=== PATIENT | female | born 1950 | race Caucasian/White ===

== ENCOUNTER 2016-11-09 06:56 | Emergency (ER) | payer MEDICARE, OTHER ==
--- NOTE | 2016-11-09 07:13 | EDM.PDOC ---
ED HPI GENERAL MEDICAL PROBLEM - General Chief Complaint: Genitourinary Problem Stated Complaint: [id number] BLADDER INFECTION Time Seen by Provider: 11/09/16 07:08 Source of Information: Reports: Patient History Limitations: Reports: No Limitations - History of Present Illness INITIAL COMMENTS - FREE TEXT/NARRATIVE: 66 yo white female c/o pain with urination since last pm. Pt. reports getting UTIs once yearly. Pt. denies chills, fever, nausea or vomitting Onset Date: 11/08/16 Onset Time: 19:00 Duration: Hour(s): Location: Reports: Abdomen (low mid) Quality: Reports: Pressure Severity: Moderate Improves with: Reports: None Worsens with: Reports: None Associated Symptoms: Reports: No Other Symptoms Pelvic Pain Score (Numeric/FACES): 5 - Related Data Allergies Allergy/AdvReac Type Severity Reaction Status Date / Time No Known Allergies Allergy Verified 11/09/16 07:06 Home Meds: Home Meds . [No Known Home Meds] 11/09/16 [History] ED ROS GENERAL - Review of Systems Review Of Systems: See Below Constitutional: Reports: No Symptoms HEENT: Reports: No Symptoms Respiratory: Reports: No Symptoms Cardiovascular: Reports: No Symptoms Endocrine: Reports: No Symptoms GI/Abdominal: Reports: Abdominal Pain (low mid) : Reports: Dysuria, Frequency Musculoskeletal: Reports: No Symptoms Skin: Reports: No Symptoms Neurological: Reports: No Symptoms Psychiatric: Reports: No Symptoms Hematologic/Lymphatic: Reports: No Symptoms Immunologic: Reports: No Symptoms ED EXAM, RENAL/ - Physical Exam Exam: See Below Exam Limited By: No Limitations General Appearance: Alert, No Apparent Distress, Obese Head: Atraumatic Respiratory/Chest: No Respiratory Distress Cardiovascular: Normal Peripheral Pulses GI/Abdominal: Tender (suprapubic area) Back Exam: Normal Inspection Extremities: Normal Inspection Neurological: Alert, Oriented, CN II-XII Intact Psychiatric: Normal Affect, Normal Mood Skin Exam: Warm, Dry, Intact Lymphatic: No Adenopathy Course - Vital Signs Last Recorded V/S: Last Vital Signs Temp 36.2 C 11/09/16 06:58 Pulse 77 11/09/16 06:58 Resp 16 11/09/16 06:58 BP 143/69 H 11/09/16 06:58 Pulse Ox 100 11/09/16 06:58 - Orders/Labs/Meds Orders: Active Orders 24 hr Category Date Time Status CULTURE URINE [RM] Stat Lab 11/09/16 07:16 Uncollected Labs: Laboratory Tests 11/09/16 Range/Units 07:00 Urine Color Yellow (YELLOW) Urine Appearance Turbid (CLEAR) Urine pH 7.0 (5.0-9.0) Ur Specific [place] 1.020 (1.005-1.030) Urine Protein 100 H (NEGATIVE) Urine Glucose (UA) Negative (NEGATIVE) Urine Ketones Negative (NEGATIVE) Urine Occult Blood Large H (NEGATIVE) Urine Nitrite Positive H (NEGATIVE) Urine Bilirubin Negative (NEGATIVE) Urine Urobilinogen 0.2 (0.2-1.0) mg/dL Ur Leukocyte Esterase Large H (NEGATIVE) Urine RBC 50-75 H /HPF Urine WBC >100 H (0-5/HPF) /HPF Ur Epithelial Cells Few /HPF Amorphous Sediment Few (0/HPF) /HPF Urine Bacteria Many H (0-FEW/HPF) /HPF Urine Mucus Moderate H /LPF Meds: Medications Discontinued Medications Generic Name Dose Route Start Last Admin Trade Name Leroyq PRN Reason Stop Dose Admin Ciprofloxacin 500 mg 11/09/16 07:36 Ciprofloxacin Hcl PO 11/09/16 07:37 ONETIME ONE Phenazopyridine HCl 190 mg 11/09/16 07:36 Urinary Pain Relief PO 11/09/16 07:37 ONETIME ONE Departure - Departure Time of Disposition: 07:37 Disposition: Home, Self-Care 01 Condition: Good Clinical Impression: UTI, Urinary tract infectious disease - Discharge Information Forms: ED Department Discharge Additional Instructions: Increase intake of WATER and CRANBERRY JUICE Take medication as prescribed only and complete: CIPRO 500mg BID @ 20 PYRIDIUM 100mg TID # 9 F/U w/ PCP - My Orders Last 24 Hours: My Active Orders 11/09/16 07:16 CULTURE URINE [RM] Stat - Assessment/Plan Last 24 Hours: My Active Orders 11/09/16 07:16 CULTURE URINE [RM] Stat
[2016-11-09 07:14] VITALS: BP 143/69
[2016-11-09] MEDS ORDERED: Ciprofloxacin 500 MG Tab PO ONE ×2 (07:36→07:48)
[2016-11-09] MEDS ORDERED: Phenazopyridine 95 MG Tab PO ONE ×2 (07:36→07:48)
[2016-11-09] MEDS ORDERED: Ciprofloxacin 500 MG Tab ONE (07:48)
[2016-11-09] MEDS ORDERED: Phenazopyridine 95 MG Tab ONE (07:48)
== END 2016-11-09 07:58 | disposition home or self-care (01) ==
LOC: DL.ED 06:56
DX: N39.0 Urinary tract infection, site not specified (principal)
CPT/HCPCS: 81001; 99284; A9270; 99283

== ENCOUNTER 2017-03-20 09:25 | Emergency (ER) | payer MEDICARE, OTHER ==
[2017-03-20] MEDS ORDERED: Propofol 200 MG/20 ML SDV IV ONE (09:26)
[2017-03-20] MEDS ORDERED: HYDROmorphone 1 MG/ML Syringe IM ONE (09:49)
--- NOTE | 2017-03-20 09:50 | EDM.PDOC ---
ED HPI GENERAL MEDICAL PROBLEM - General Chief Complaint: Upper Extremity Injury/Pain Stated Complaint: PAIN IN LEFT SHOULDER, FELL LAST NIGHT [phone] Time Seen by Provider: 03/20/17 09:25 Source of Information: Reports: Patient, RN, RN Notes Reviewed History Limitations: Reports: No Limitations - History of Present Illness INITIAL COMMENTS - FREE TEXT/NARRATIVE: Pt presents to the ER with c/o right shoulder pain. She states she slipped on the ice at home last night and hurt her right shoulder. She states she has been taking acetaminophen for the pain. Pt admits to numbness in the right hand. She rates the pain a 10/10. Pt denies hitting her head or losing consciousness. Onset: Sudden Onset Date: 03/19/17 Duration: Constant Location: Reports: Upper Extremity, Right Quality: Reports: Sharp, Stabbing, Throbbing Severity: Severe Improves with: Reports: None Worsens with: Reports: None Associated Symptoms: Reports: No Other Symptoms Treatments [employer] OFFICER: Reports: Acetaminophen Right Shoulder Pain Score (Numeric/FACES): 10 - Related Data Allergies Allergy/AdvReac Type Severity Reaction Status Date / Time No Known Allergies Allergy Verified 03/20/17 09:35 Home Meds: Home Meds Acetaminophen [Tylenol] 1,300 mg PO Q4HR 03/20/17 [History] Past Medical History HEENT History: Reports: None Cardiovascular History: Reports: None Respiratory History: Reports: None Gastrointestinal History: Reports: Cholelithiasis Genitourinary History: Reports: UTI, Recurrent [employer] History: Reports: None Musculoskeletal History: Reports: None Neurological History: Reports: None Psychiatric History: Reports: None Endocrine/Metabolic History: Reports: None Hematologic History: Reports: None Immunologic History: Reports: None Oncologic (Cancer) History: Reports: None Dermatologic History: Reports: None - Infectious Disease History Infectious Disease History: Reports: Chicken Pox, Measles, Mumps - Past Surgical History Head Surgeries/Procedures: Reports: None HEENT Surgical History: Reports: Tonsillectomy GI Surgical History: Reports: Cholecystectomy Female Surgical History: Reports: None Social & Family History - Tobacco Use Smoking Status *Q: Never Smoker Second Hand Smoke Exposure: No - Caffeine Use Caffeine Use: Reports: Coffee - Recreational Drug Use Recreational Drug Use: No Review of Systems - Review of Systems Review Of Systems: ROS reveals no pertinent complaints other than HPI. ED EXAM, GENERAL - Physical Exam Exam: See Below Exam Limited By: No Limitations General Appearance: Alert, WD/WN, Moderate Distress Eye Exam: Bilateral Eye: EOMI, Normal Inspection, PERRL Ears: Normal External Exam, Hearing Grossly Normal Nose: Normal Inspection Throat/Mouth: Normal Inspection, Normal Voice, No Airway Compromise Head: Atraumatic, Normocephalic Neck: Normal Inspection, Supple, Non-Tender, Full Range of Motion Respiratory/Chest: No Respiratory Distress, Lungs Clear, Normal Breath Sounds, No Accessory Muscle Use, Chest Non-Tender Cardiovascular: Normal Peripheral Pulses, Regular Rate, Rhythm, No Edema, No Gallop, No JVD, No Murmur, No Rub Peripheral Pulses: 2+: Brachial (L), Brachial (R) GI/Abdominal: Normal Bowel Sounds, Soft, Non-Tender, No Organomegaly, No Distention, No Abnormal Bruit, No Mass, Pelvis Stable (Female) Exam: Deferred Rectal (Female) Exam: Deferred Back Exam: Normal Inspection, Full Range of Motion Extremities: Normal Inspection, No Pedal Edema, Normal Capillary Refill, Arm Pain (right), Limited Range of Motion (right arm), Other (numbness to the right hand and right arm) Neurological: Alert, Oriented, Normal Cognition, Normal Gait, Normal Reflexes, No Motor/Sensory Deficits Psychiatric: Normal Affect, Normal Mood Skin Exam: Warm, Dry, Intact, Normal Color, No Rash Lymphatic: No Adenopathy ED TRAUMA EXTREMITY PROCEDURES - Joint Reduction Site: Shoulder (R) Sedation: Conscious Sedation Pre-Procedure NV Status: Abnormal (Good radial pulses, good CMS, c/o numbness to the right hand) Post-Procedure NV Status: Abnormal (Pulse present, Good capillary refill, continues to c/o numbness to the right hand) Technique: Traction/Counter Traction Number of Attempts: 2 Post-Reduction Imaging: Acceptably Reduced, Fracture Seen Joint Reduction Complications: No Progress/Comments: Pre and post reduction films sent to [facility]. Visited with Dr. Johnson regarding the patient. He states if acceptably reduced following more views done , the patient can be placed in a sling and discharged. She is to follow up with Ortho at [facility] in [place] next week. Course - Vital Signs Last Recorded V/S: Last Vital Signs Temp 97.6 F 03/20/17 09:31 Pulse 60 03/20/17 14:35 Resp 16 03/20/17 14:35 BP 154/71 H 03/20/17 14:35 Pulse Ox 97 03/20/17 14:35 - Orders/Labs/Meds Orders: Active Orders 24 hr Category Date Time Status Peripheral IV Care [RC] . DIRECTED Care 03/20/17 10:47 Active Peripheral IV Insertion Adult [OM.PC] Stat Oth 03/20/17 10:47 Ordered Labs: Laboratory Tests 03/20/17 03/20/17 Range/Units 10:56 10:56 WBC 8.1 (5.0-10.0) 10^3/uL RBC 3.88 L (4.2-5.4) 10^6/uL Hgb 13.1 (12.0-16.0) g/dL Hct 38.7 (37.0-47.0) % MCV 99.7 (80-100) fL MCH 33.8 (27.0-34.0) pg MCHC 33.9 (33.0-35.0) g/dL Plt Count 182 (150-450) 10^3/uL Neut % (Auto) 82.0 H (42.2-75.2) % Lymph % (Auto) 10.3 L (20.5-50.1) % Elbert % (Auto) 7.4 (2-8) % Eos % (Auto) 0.2 L (1.0-3.0) % Baso % (Auto) 0.1 (0.0-1.0) % Sodium 137 (135-145) mmol/L Potassium 4.1 (3.6-5.0) mmol/L Chloride 104 (101-111) mmol/L Carbon Dioxide 22.0 (21.0-31.0) mmol/L Anion Gap 15.1 BUN 18 (7-18) mg/dL Creatinine 0.7 (0.6-1.3) mg/dL Est Cr Clr Drug Dosing 74.01 mL/min Estimated GFR (MDRD) > 60 BUN/Creatinine Ratio 25.71 Glucose 129 H (74-105) mg/dL Calcium 9.0 (8.4-10.2) mg/dl Total Bilirubin 0.7 (0.2-1.0) mg/dL AST 66 H (10-42) IU/L ALT 43 (10-60) IU/L Alkaline Phosphatase 85 (42-121) IU/L Total Protein 6.9 (6.7-8.2) g/dl Albumin 4.3 (3.2-5.5) g/dl Globulin 2.6 Albumin/Globulin Ratio 1.65 Meds: Medications Discontinued Medications Generic Name Dose Route Start Last Admin Trade Name Freq PRN Reason Stop Dose Admin Hydromorphone HCl 0.5 mg 03/20/17 10:00 03/20/17 09:56 Dilaudid IM 03/20/17 10:01 0.5 mg ONETIME ONE Administration Hydromorphone HCl 1 mg 03/20/17 11:45 03/20/17 11:50 Dilaudid IVPUSH 03/20/17 11:46 1 mg ONETIME ONE Administration Sodium Chloride 1,000 mls @ 999 mls/hr 03/20/17 10:47 03/20/17 11:35 Normal Saline IV 03/20/17 11:47 999 mls/hr .BOLUS ONE Administration Ondansetron HCl 4 mg 03/20/17 15:57 03/20/17 16:15 Zofran IV 03/20/17 15:58 4 mg ONETIME ONE Administration Sodium Chloride 10 ml 03/20/17 10:47 Saline Flush FLUSH ASDIRECTED PRN Keep Vein Open - Radiology Interpretation Free Text/Narrative:: Right Shoulder xray: Anterior dislocation humeral head proximal right humerus relative to the glenoid of the scapula with associated avulsion fracture greater tuberosity laterally humeral head (large fragment sheared off by the ingraglenoid portion of the scapula). See rad report Post reduction xrays: Satisfactory reduction See rad report Discussed patient case with Dr. Disla at [facility]. He states the patient can be put in a sling and follow up with ortho in [place] next week. Departure - Departure Time of Disposition: 15:36 Disposition: Home, Self-Care 01 Condition: Fair Clinical Impression: Dislocation of right shoulder joint Qualifiers: Encounter type: initial encounter Qualified Code(s): S43.004A - Unspecified dislocation of right shoulder joint, initial encounter Fracture closed, humerus Qualifiers: Encounter type: initial encounter Humerus Location: greater tuberosity Fracture alignment: nondisplaced Laterality: right Qualified Code(s): S42.254A - Nondisplaced fracture of greater tuberosity of right humerus, initial encounter for closed fracture - Discharge Information Instructions: Humerus Fracture Treated With Immobilization, [id number], Shoulder Pain, [id number], Shoulder Dislocation, [id number] Referrals: PCP,None [Primary Care Provider] - Forms: ED Department Discharge Additional Instructions: Make an appointment to be seen by Ortho at [facility] in [place] next week. Use sling at all times except for the shower until seen by Ortho. RX: Narco Ibuprofen 600-800mg every 8 hours as needed for pain Tylenol (acetaminophen) 500-650mg every 4 hours as needed for pain but do not take while taking the Narco as it has acetaminophen in it also. - My Orders Last 24 Hours: My Active Orders 03/20/17 10:47 Peripheral IV Care [RC] . DIRECTED Peripheral IV Insertion Adult [OM.PC] Stat - Assessment/Plan Last 24 Hours: My Active Orders 03/20/17 10:47 Peripheral IV Care [RC] . DIRECTED Peripheral IV Insertion Adult [OM.PC] Stat
[2017-03-20] MEDS ORDERED: HYDROmorphone 0.5 MG/0.5 ML Syringe IM ONE (10:00)
--- NOTE | 2017-03-20 10:16 | CR ---
Clinical history: 66-year-old female injured right shoulder in a fall. Interpretation: Abnormal. Anterior dislocation humeral head proximal right humerus relative to the glenoid of the scapula with associated avulsion fracture greater tuberosity laterally humeral head (large fragment sheared off by the infraglenoid portion of the scapula). No other fractures of the right shoulder "girdle" and no associated separation of the acromioclavicul ar joint. Right lung apex clear. No upper rib fractures.
[2017-03-20] MEDS ORDERED: Sodium Chloride 0.9% 10 ML Syringe FLUSH PRN (10:47)
[2017-03-20] MEDS ORDERED: Sodium Chloride 0.9% 1,000 ML IV ONE (10:47)
[2017-03-20 11:23] LABS: ANION GAP 15.1; CHLORIDE,CL 104 mmol/L (101-111); SODIUM,NA 137 mmol/L (135-145)
[2017-03-20] MEDS ORDERED: HYDROmorphone 1 MG/ML Syringe IVPUSH ONE (11:37)
[2017-03-20] MEDS ORDERED: HYDROmorphone 0.5 MG/0.5 ML Syringe IVPUSH ONE (11:45)
--- NOTE | 2017-03-20 12:38 | CR ---
Clinical history: 66-year-old sedated, supine obese female for reduction right shoulder "dislocation and fracture". Satisfactory relocation humeral head relative to the glenoid of the scapula (Y view) right shoulder. Previously noted "greater tuberosity fracture, head of the right humerus" fragment not appreciated an d recommend repeat, follow-up, more optimal AP view when patient stable.
--- NOTE | 2017-03-20 14:35 | CR ---
Clinical history: 66-year-old female right shoulder post reduction "anterior dislocation with avulsio n fracture humeral head". Interpretation: Satisfactory reduction i.e. relocation humeral head relative to the glenoid of the sc apula. Large avulsion fracture fragment greater tuberosity lateral aspect of the humeral head nondisplaced. Humeral head is elevated relative to the glenoid consistent with capsular injury. No other shoulder f racture or A-C separation. Right lung apex clear.
[2017-03-20 14:36] VITALS: BP 154/71
[2017-03-20] MEDS ORDERED: Ondansetron 4 MG/2 ML SDV IV ONE (15:57)
== END 2017-03-20 16:30 | disposition home or self-care (01) ==
LOC: DL.ED 09:25
DX: S42.254A Nondisplaced fracture of greater tuberosity of right humerus, initial encounter for closed fracture (principal); S43.004A Unspecified dislocation of right shoulder joint, initial encounter; W00.9XXA Unspecified fall due to ice and snow, initial encounter; Y92.009 Unspecified place in unspecified non-institutional (private) residence as the place of occurrence of the external cause
CPT/HCPCS: 01620; 23650; 23665; 36415; 73030; 80053; 85025; 96372; 96374; 96375; 99284; J1170; J2405; J2704; J7030

== ENCOUNTER 2021-07-30 06:55 | Day surgery (SDC) | payer MEDICARE, OTHER ==
[~2021-07-30 06:55] MED LIST: Dextrose 5%-0.45% NaCl 1,000 ML IV SCH; Midazolam 1 MG/ML 2 ML SDV ONE; Sodium Chloride 0.9% 10 ML Syringe FLUSH PRN; Sodium Chloride 0.9% 10 ML Syringe FLUSH SCH; fentaNYL 100 MCG/2 ML SDV ONE
[2021-07-30] MEDS ORDERED: fentaNYL 100 MCG/2 ML SDV IV ONE ×3 (06:56→08:25)
[2021-07-30] MEDS ORDERED: Midazolam 1 MG/ML 2 ML SDV IV ONE ×7 (06:56→08:33)
[2021-07-30 10:42] VITALS: BP 138/69; PULSE 58
== END 2021-07-30 10:35 | disposition home or self-care (01) ==
LOC: DL.ENDO 06:55
PROVIDERS: ATTEND Internal Medicine Gastroenterology
DX: Z12.11 Encounter for screening for malignant neoplasm of colon (principal); K57.30 Diverticulosis of large intestine without perforation or abscess without bleeding; E03.9 Hypothyroidism, unspecified; E66.09 Other obesity due to excess calories; E78.5 Hyperlipidemia, unspecified; F10.10 Alcohol abuse, uncomplicated; Z98.890 Other specified postprocedural states; Z90.49 Acquired absence of other specified parts of digestive tract; Z87.39 Personal history of other diseases of the musculoskeletal system and connective tissue; Z68.41 Body mass index [BMI] 40.0-44.9, adult
CPT/HCPCS: G0121; J2250; J3010; J7042

== ENCOUNTER 2022-04-13 09:32 | Emergency (ER) | payer MEDICARE, OTHER ==
[2022-04-13 09:43] VITALS: BP 158/92; PULSE 70
== END 2022-04-13 12:05 | disposition home or self-care (01) ==
LOC: DL.ED 09:32
DX: M25.774 Osteophyte, right foot (principal); M19.071 Primary osteoarthritis, right ankle and foot; E66.9 Obesity, unspecified; Z68.42 Body mass index [BMI] 45.0-49.9, adult
CPT/HCPCS: 73610-RT; 73630-RT; 99283

== ENCOUNTER 2024-04-12 23:48 | Emergency (ER) | payer MEDICARE, OTHER ==
[2024-04-13] MEDS: Ketorolac 30 MG/ML SDV IM ONE (00:02)
[2024-04-13 00:15] LABS: BASOPHILS PERCENT AUTO 0.3 % (0.0-1.0); EOSINOPHILS PERCENT AUTO 3.6 % (1.0-3.0); HEMATOCRIT 31.5 % (37.0-47.0); HEMOGLOBIN 10.3 g/dL (12.0-16.0); LYMPHOCYTES PERCENT AUTO 17.6 % (20.5-50.1); MEAN CORPUSCULAR HGB CONC 32.7 g/dL (33.0-35.0); MONOCYTES PERCENT AUTO 10.1 % (2-8); NEUTROPHILS PERCENT AUTO 68.4 % (42.2-75.2); PLATELET COUNT,PLT 235 10^3/uL (150-450); RED BLOOD CELL COUNT 3.03 10^6/uL (4.2-5.4); WHITE BLOOD CELL COUNT,WBC 6.7 10^3/uL (5.0-10.0)
[2024-04-13 00:34] LABS: ALANINE AMINOTRANSFERASE,ALT 216 U/L (14-59); ALBUMIN 2.7 g/dL (3.4-5.0); ALKALINE PHOSPHATASE 223 U/L (46-116); ANION GAP 13.3 mEq/L (7-13); ASPARTATE AMNIOTRANSFERASE,AST 118 U/L (15-37); BILIRUBIN TOTAL 0.5 mg/dL (0.2-1.0); BLOOD UREA NITROGEN,BUN 13 mg/dL (7-18); BUN/CREATININE RATIO 18.3 (No establ ref range); C-REACTIVE PROTEIN 7.73 ng/dL (<=0.50); CALCIUM 8.5 mg/dL (8.5-10.1); CARBON DIOXIDE,CO2 26 mmol/L (21-32); CHLORIDE,CL 102 mmol/L (98-107); CREATININE 0.71 mg/dL (0.55-1.02); ETHANOL BLOOD MEDICAL 276 mg/dL (0); GLUCOSE RANDOM 110 mg/dL (70-99); POTASSIUM,K 4.3 mmol/L (3.5-5.1); PROTEIN TOTAL,TP 5.7 g/dL (6.4-8.2); SODIUM,NA 137 mmol/L (136-145)
[2024-04-13 00:35] LABS: ESTIMATED GFR 89 mL/min (>=60)
[2024-04-13] MEDS: Acetaminophen/HYDROcodone 325-5 MG Tab PO ONE ×2 (00:53→07:10)
[2024-04-13 00:54] LABS: SEDIMENTATION RATE MANUAL 43 mm/hr (0-20)
[2024-04-13 01:40] LABS: INR 0.9 (0.9-1.2)
[2024-04-13] MEDS: Acetylcysteine 15,000 MG in Dextrose 5% in Water 200 ML IV ONE (01:47)
[2024-04-13] MEDS: Acetylcysteine 5,000 MG in Dextrose 5% in Water 500 ML IV ONE (02:58)
[2024-04-13] MEDS: Morphine 4 MG/ML Syringe IVPUSH ONE (03:22)
[2024-04-13] MEDS: SODIUM CHLORIDE 0.45% IV ONE (07:03)
[2024-04-13] MEDS: ACETYLCYSTEINE IV ONE (07:03)
[2024-04-13] MEDS: Ondansetron 4 MG/2 ML SDV IVPUSH ONE (07:04)
[2024-04-13 07:07] VITALS: BP 144/66; PULSE 82
[2024-04-15 15:46] LABS: HAV AB IGM Negative (Negative); HBC IGM Negative (Negative); HEP B SURG AG Negative (Negative); HEP C AB BY CIA Negative (Negative); HEP C AB BY CIA INDEX 0.03 IV
== END 2024-04-13 08:30 ==
LOC: DL.ED 23:48
DX: G89.18 Other acute postprocedural pain (principal); M25.561 Pain in right knee; T39.1X1A Poisoning by 4-Aminophenol derivatives, accidental (unintentional), initial encounter; R79.89 Other specified abnormal findings of blood chemistry; F10.10 Alcohol abuse, uncomplicated; E78.00 Pure hypercholesterolemia, unspecified; Z86.16 Personal history of COVID-19; Z79.899 Other long term (current) drug therapy; Z90.49 Acquired absence of other specified parts of digestive tract; Y90.9 Presence of alcohol in blood, level not specified
CPT/HCPCS: 36415; 73560-RT; 80053; 80074; 80143; 80307; 85025; 85610; 85651; 86140; 96365; 96366; 96372; 96375; 99285; 99285-25; A9270-GY; J0132; J1885; J2270; J2405; J7030; J7060